=== PATIENT | female | born 1975 | race Caucasian/White ===

== ENCOUNTER 2023-02-06 21:28 | Emergency (ER) | payer MEDICAID, SELFPAY ==
[2023-02-06 21:39] VITALS: BP 197/112; PULSE 62; RESP 14; TEMP 36.6; O2SAT 94; BMI 45.3
[2023-02-06 22:02] VITALS: BP 174/116; PULSE 60; RESP 16; O2SAT 96
--- NOTE | 2023-02-06 22:18 | W.ED.GENADLT ---
HPI - General Adult General: Chief complaint: Ear Stated complaint: Ear Ache\SOB Time Seen by Provider: 02/06/23 21:57 Source: patient Mode of arrival: ambulatory Limitations: no limitations History of Present Illness: Patient is a 47-year-old female presents to ED today with a complaint of cough and shortness of breath that he attributes to her COPD as well as right ear pain. Patient states she has chronic COPD and which she treats with albuterol nebulizer treatments. Patient states she does have some leftover prednisone that she has been taking as well. Patient continues to smoke daily. She is not complaining of any chest pain. She states she chronically has ear infections. Looking at previous documentation it looks like she was recently seen in [facility] clinic and diagnosed with bilateral otitis media. Onset (ago): day(s) Relieving factors: none Exacerbating factors: none Associated symptoms: Reports dyspnea; Deny chest pain, confusion, headache(s), malaise, rash, palpitations or syncope Review of Systems Const: Denies: fever(s), chills, body aches, fatigue or malaise ENMT: Reports: ear or mastoid pain; Denies: ear discharge, change in hearing, tinnitus or disequilibrium Card: Reports: dyspnea on exertion; Denies: chest pain, palpitations, irregular heart rhythm, edema, swelling of feet/ankles, lightheadedness, syncope, pre-syncope, orthopnea, leg pain with exertion or acrocyanosis Resp: Reports: dyspnea, productive cough and chest congestion; Denies: wheezing or hemoptysis GI: Denies: abdominal pain Musc: Denies: neck pain, back pain, extremity pain or joint pain Skin/Breast: Denies: rash Neuro: Denies: headache(s), numbness in extremities, weakness in extremities, sensory changes or confusion PFS ED PFSH: Medical History Vulvovaginitis due to yeast Physical Exam Const: COMMON NORMALS: no acute distress, patient oriented x3, no limitations and alert GENERAL APPEARANCE: cooperative NUTRITIONAL APPEARANCE: obese morbidly obese ORIENTATION/CONSCIOUSNESS: Yes awake, Yes oriented to person, Yes oriented to place and Yes oriented to time HENMT: COMMON NORMALS: normocephalic, atraumatic and EAC's normal HEAD & SCALP: normal to inspection, normocephalic and atraumatic EXTERNAL AUDITORY CANAL: EAC's normal TYMPANIC MEMBRANE: TM normal on the left and TM abnormal TM laterality: right Details: fluid behind TM Neck/C-Spine: COMMON NORMALS: no JVD Chest: COMMONS NORMALS: normal inspection of the chest and normal palpation of entire chest wall Resp: COMMON NORMALS: normal respiratory effort EFFORT & INSPECTION: Yes able to speak in complete sentences AUSCULTATION: wheezes Cardio: COMMON NORMALS: no JVD, regular rate and regular rhythm RATE: regular rate RHYTHM: regular rhythm Extremity: COMMON NORMALS: no joint enlargement, no clubbing, cyanosis or edema, no calf tenderness and no pedal edema Neuro: COMMON NORMALS: patient oriented x3 SENSORIUM/ORIENTATION: Yes alert, Yes oriented to person, Yes oriented to place and Yes oriented to time Course Vital Signs: Vital signs: Vital Signs Temperature 97.9 F 02/06/23 22:38 Pulse Rate 60 02/06/23 22:38 Respiratory Rate 16 02/06/23 22:38 Blood Pressure 174/116 02/06/23 22:38 Pulse Oximetry 96 02/06/23 22:38 Oxygen Delivery Me thod Room Air 02/06/23 22:02 MDM - General Adult Medical Decision Making Shortly after my initial examination patient alerted the RN that she wished to sign out AMA. I went in to speak to patient and she states I know what I need to do-need to go home and lay on the couch and get better . We spoke about blood work, chest x-rays, and potential treatments for better management of her COPD but she refuses all of this and would like to go home. Discussed signs and symptoms that should prompt a return to ED evaluation which patient agrees to. She does not a primary care provider so I will place a referral with case management for one. Discharge Plan Discharge Patient Disposition: Left Against Medical Advice Clinical Impression: COPD (chronic obstructive pulmonary disease), Acute serous otitis media of right ear Condition: Stable Prescriptions: No Action lisinopril 40 mg tablet 40 mg PO DAILY omeprazole 10 mg capsule,delayed release(DR/EC) 10 mg PO DAILY buprenorphine-naloxone 8-2 mg tablet, sublingual 1 tab sublingual DAILY albuterol sulfate 2.5 mg /3 mL (0.083 %) solution for nebulization 2.5 mg inhalation Q6H azithromycin 250 mg tablet See Rx Instructions PO .COMPLEX Qty: 6 0RF Rx Instructions: take 500 mg today (day 1), then 250 mg for 4 days (days 2-5) PO fluconazole [Diflucan] 150 mg tablet 150 mg PO Q3D Qty: 2 0RF Coding Level of Care Code ED Filling And Stapling Machine Operator for Tracy Peralta
--- NOTE | 2023-02-06 22:29 | PC.NURSE ---
RN goes into room to answer call light. X-ray tech is arriving in the room to perform chest x-ray. Pt states, I think I just want to leave. We both know what's wrong with me. I don't really need that x-ray. RN notified provider. X-ray was not taken.
[2023-02-06 22:38] VITALS: BP 174/116; PULSE 60; RESP 16; TEMP 36.6; O2SAT 96
== END 2023-02-06 22:39 | disposition left against medical advice (07) ==
PROVIDERS: Emergency Provider Physician Assistant
DX: J44.9 Chronic obstructive pulmonary disease, unspecified (principal); H65.01 Acute serous otitis media, right ear
CPT/HCPCS: 99281

== ENCOUNTER 2023-04-15 22:46 | Emergency (ER) | payer MEDICAID, SELFPAY ==
[2023-04-15 22:55] VITALS: BP 161/108; PULSE 84; RESP 18; TEMP 36.9; O2SAT 95; BMI 47.2
--- NOTE | 2023-04-16 02:21 | W.ED.EAR ---
HPI - Ear Problem General: Chief complaint: Ear Stated complaint: possible ear infection Time Seen by Provider: 04/15/23 23:28 Source: patient Mode of arrival: ambulatory Limitations: no limitations History of Present Illness: Patient presents emergency department today complaining of bilateral ear pain-right worse than left. Patient reports she has been dealing with bilateral ear pressure now for over a month. She has already been seen and evaluated and was treated with some eardrops and nasal spray which seemed to help for a bit. However, recently the pain has gotten worse. She does have some nasal congestion and throat irritation. Patient reports a long history of issues with her ears stating that a year or 2 ago she had ear tubes placed by ENT in [place] no she is not sure who did it. She states her primary care doctor said they were going to place a referral to ENT but that was over a month ago and she has not heard anything about it yet. Review of Systems General: Reports: 10 or more systems reviewed and unremarkable except in HPI and below PFSH ED PFSH: Medical History Acute serous otitis media of right ear COPD (chronic obstructive pulmonary disease) Smoker Smokers' cough Vulvovaginitis due to yeast Physical Exam Const: COMMON NORMALS: no acute distress, patient oriented x3 and alert HENMT: OTHER: Left TM is nonerythematous but bulging with fluid present. EAC is clear. Right TM is erythematous and bulging with purulent accumulation noted. EAC clear. Pharynx is mildly erythematous but without exudate. Nasal passages are erythematous and boggy bilaterally. Eye: COMMON NORMALS: Equal, round and reactive pupils present, EOMs intact bilaterally and conjunctivae normal CONJUNCTIVA: Yes conjunctivae normal PUPIL: Yes Equal, round and reactive pupils present Neck/C-Spine: COMMON NORMALS: no JVD Lymph: LYMPHATIC: no lymphadenopathy noted Resp: COMMON NORMALS: normal respiratory effort, No retractions and No use of accessory muscles Cardio: COMMON NORMALS: no JVD and regular rate RATE: regular rate : COMMON NORMALS: Yes no CVA tenderness BLADDER/KIDNEY EXAM: Yes no CVA tenderness Back/Pelvis: COMMON NORMALS: no CVA tenderness, thoracic and lumbar spine normal to inspection and thoraco-lumbar ROM normal Extremity: COMMON NORMALS: normal to inspection, full ROM and no pedal edema Neuro: COMMON NORMALS: patient oriented x3 SENSORIUM/ORIENTATION: Yes alert Skin: COMMON NORMALS: no rashes or lesions noted and turgor normal GENERAL SKIN EXAM: no rashes or lesions noted and turgor normal Course Vital Signs: Vital signs: Vital Signs Temperature 98.4 F 04/15/23 22:55 Pulse Rate 84 04/15/23 22:55 Respiratory Rate 18 04/15/23 22:55 Blood Pressure 161/108 04/15/23 22:55 Pulse Oximetry 95 04/15/23 22:55 Oxygen Delivery Me thod Room Air 04/15/23 22:55 MDM - Ear Medical Decision Making Patient has findings of right-sided otitis media and a serous otitis media on the left. Explained to the patient that she has developed an infection from the accumulation of fluid behind her ears. Patient states that she used to see [facility] in [place] and, when she would get ear infections would receive a Z-Gopal which always cleared her up. She is concerned about possible reaction to other antibiotics and wishes to stick with a Z-Gopal for treatment today. I encouraged her to keep using the nasal spray and antihistamines. I also placed another referral for ENT follow-up on her behalf today. Patient was given return precautions. Patient verbalized understanding and agreement to treatment plan. Differential Diagnosis Likely otitis externa and otitis media; Unlikely foreign body in ear, ruptured TM or cerumen impaction Discharge Plan Discharge Patient Disposition: Home Clinical Impression: Otitis media Condition: Stable Prescriptions: New Zithromax Z-Gopal 250 mg tablet See Rx Instructions PO .COMPLEX Qty: 6 0RF Rx Instructions: For 250 mg dose pack: take 500 mg today (day 1), then 250 mg for 4 days (days 2-5) No Action lisinopril 40 mg tablet 40 mg PO DAILY omeprazole 10 mg capsule,delayed release(DR/EC) 10 mg PO DAILY buprenorphine-naloxone 8-2 mg tablet, sublingual 1 tab sublingual DAILY albuterol sulfate 2.5 mg /3 mL (0.083 %) solution for nebulization 2.5 mg inhalation Q6H cetirizine 10 mg tablet 10 mg PO DAILY PRN (Reason: allergy symptoms) Qty: 90 0RF Discharge Orders: Discharge ED (Routine); Ordered 04/16/23 Ordered By: Louise Garcia Referrals: VALENTINA HERNANDEZ MD [Primary Care Provider] - Discharge Diet: Usual diet Discharge Activity: Increase activity as tolerated Activity Restrictions/Additional Instructions: Examination shows that the fluid behind your right eardrum has now become infected and you have developed otitis media. You need antibiotics to treat this condition. I think your underlying issue is recurrent eustachian tube dysfunction where the draining tube for the fluid behind your ear is often pinched shut and does not allow for the fluid to drain and remains trapped. This causes increased pressure, decreased ability to hear, and increases your risk of infection. I have placed a referral for ENT follow-up on your behalf to discuss recurrent issues with increased fluid on your ears. Coding Level of Care Code ED Remotely Piloted Vehicle Controller for Tracy Peralta
--- NOTE | 2023-04-18 12:33 | DCPLANNER ---
Addendum entered by Isabell Galeana 04/19/23 13:44: Patient has a follow up appointment scheduled for Thursday, April 27, 2023 at 2:[address] Coffey at ENT Original Note: seed corn manager production had message to schedule a follow up appointment for patient for ENT. seed corn manager production sent patients information to the front office staff at ENT. Patients information will be printed and reviewed. Clinic will call patient with appointment information.
== END 2023-04-16 00:16 | disposition home or self-care (01) ==
PROVIDERS: Emergency Provider Physician Assistant; PCP Nurse Practitioner Family
DX: H65.92 Unspecified nonsuppurative otitis media, left ear (principal); H66.91 Otitis media, unspecified, right ear
CPT/HCPCS: 99283

== ENCOUNTER → 2023-04-27 13:29 | Outpatient (BNVA) | payer MEDICAID, SELFPAY | PROVIDERS: PCP Nurse Practitioner Family; Visit Provider Otolaryngology | DX: H69.93 Unspecified Eustachian tube disorder, bilateral (principal); J34.2 Deviated nasal septum; M95.0 Acquired deformity of nose; F17.200 Nicotine dependence, unspecified, uncomplicated; E66.01 Morbid (severe) obesity due to excess calories; Z68.42 Body mass index [BMI] 45.0-49.9, adult | CPT/HCPCS: 99203 ==

== ENCOUNTER 2023-05-07 18:56 | Emergency (ER) | payer MEDICAID, SELFPAY ==
[2023-05-07 19:05] VITALS: BP 116/80; PULSE 100; RESP 18; TEMP 36.8; O2SAT 97; BMI 47.3
--- NOTE | 2023-05-07 19:33 | ED_ITS ---
HPI - General Adult General: Chief complaint: General Medical Stated complaint: Knot on side Of Throat Time Seen by Provider: 05/07/23 19:32 History of Present Illness: 47-year-old female comes in today with complaints of ear pain and sore lymph nodes to the anterior cervical chain increased on the right than the left. Patient appears nontoxic. Patient appears in mild pain. Patient has been treated by ENT, Dr. Coffey, for eustachian tube dysfunction. Patient was seen yesterday at urgent care clinic and was instructed to use [id number] allergy medication and Flonase. Patient has been using the medication with some relief of discomfort. Patient reports no fever. Patient takes medications for GERD, and high blood pressure, and substance use disorder. Associated symptoms: Deny chest pain or dyspnea Review of Systems Const: Denies: fever(s) ENMT: Reports: ear or mastoid pain Card: Denies: chest pain Resp: Denies: dyspnea PFSH ED PFSH: Medical History COPD (chronic obstructive pulmonary disease) Smoker Smokers' cough Physical Exam Const: COMMON NORMALS: alert HENMT: HEAD & SCALP: normal to inspection TYMPANIC MEMBRANE: TM abnormal TM laterality: right Details: dull and left Details: retracted MOUTH: Normal oral and palatal mucosa present Neck/C-Spine: COMMON NORMALS: full ROM Lymph: LYMPHATIC: lymphadenopathy (Anterior cervical bilaterally) Resp: COMMON NORMALS: normal respiratory effort Cardio: COMMON NORMALS: regular rate and regular rhythm RATE: regular rate RHYTHM: regular rhythm GI: COMMON NORMALS: Soft to palpation PALPATION: Yes Soft to palpation Back/Pelvis: COMMON NORMALS: thoracic and lumbar spine normal to inspection Extremity: COMMON NORMALS: full ROM Neuro: SENSORIUM/ORIENTATION: Yes alert Skin: COMMON NORMALS: turgor normal GENERAL SKIN EXAM: turgor normal Course Vital Signs: Vital signs: Vital Signs Temperature 98.3 F 05/07/23 19:05 Pulse Rate 100 05/07/23 19:05 Respiratory Rate 18 05/07/23 19:05 Blood Pressure 116/80 05/07/23 19:05 Pulse Oximetry 97 05/07/23 19:05 Oxygen Delivery Me thod Room Air 05/07/23 19:05 MDM - General Adult Medical Decision Making 47-year-old female comes in today with complaints of ear pain and tender lymph nodes to her anterior cervical neck. On exam patient appears nontoxic. Right tympanic membrane is dull and bulging, left TM is retracted. No significant erythema is noted. Patient has some mild lymphadenopathy noted bilaterally vital signs are normal. Differential diagnosis includes but not limited to otalgia, eustachian tube dysfunction, otitis media, upper respiratory infection. Strep test was negative. Urinalysis did have an increased amount of white blood cells. Believe patient probably has a rhinosinusitis causing her otalgia. Patient did have some increased discharge in the vaginal area we will go ahead and treat with Diflucan and cover with antibiotic azithromycin for her rhinosinusitis. Patient was also started on some prednisone to assist with throat discomfort and ear pain. Encourage fluids rest and repeat Diflucan at the end of the antibiotic and steroid use. Patient reported understanding and agreed to plan. Lab Data Laboratory Results Urine Color Yellow (Yellow) 05/07/23 19:37 Urine Appearance Clear (CLEAR) 05/07/23 19:37 Urine pH 5 (5-7) 05/07/23 19:37 Ur Specific Armstrong 1.015 (1.005-1.030) 05/07/23 19:37 Urine Protein Neg (Negative) 05/07/23 19:37 Urine Glucose (UA) Norm (Normal) 05/07/23 19:37 Urine Ketones Negative (Negative) 05/07/23 19:37 Urine Blood Neg (Negative) 05/07/23 19:37 Urine Nitrate Negative (Negative) 05/07/23 19:37 Urine Bilirubin 1+ (Negative) H 05/07/23 19:37 Urine Urobilinogen 1 mg/dL (Negative) H 05/07/23 19:37 Ur Leukocyte Esterase Trace (Negative) H 05/07/23 19:37 Urine RBC Rare /hpf (0-2) 05/07/23 19:37 Urine WBC 0-4 /hpf (0-5) H 05/07/23 19:37 Ur Squamous Epith Cells 0-4 /hpf (0-5) H 05/07/23 19:37 Amorphous Sediment Not Reportable 05/07/23 19:37 Urine Bacteria 1+ /hpf (NONE) H 05/07/23 19:37 Urine Mucus 2+ /hpf 05/07/23 19:37 Group A Strep Rapid Negative (Negative) 05/07/23 19:48 No radiology studies performed this visit Discharge Plan Discharge Patient Disposition: Home Clinical Impression: Otalgia of both ears, Acute rhinosinusitis Condition: Stable Prescriptions: New azithromycin 250 mg tablet 250 mg PO DAILY 4 Days Qty: 4 0RF Rx Instructions: start on day 2 of therapy prednisone 20 mg tablet 20 mg PO BID Qty: 7 0RF Diflucan 150 mg tablet 150 mg PO DAILY Qty: 1 0RF Rx Instructions: administer on day 1 of therapy after antibiotic completion No Action lisinopril 40 mg tablet 40 mg PO DAILY omeprazole 10 mg capsule,delayed release(DR/EC) 10 mg PO DAILY buprenorphine-naloxone 8-2 mg tablet, sublingual 1 tab sublingual DAILY albuterol sulfate 2.5 mg /3 mL (0.083 %) solution for nebulization 2.5 mg inhalation Q6H cetirizine 10 mg tablet 10 mg PO DAILY PRN (Reason: allergy symptoms) Qty: 90 0RF Discharge Orders: Discharge ED (Routine); Ordered 05/07/23 Ordered By: Rodolfo Cardenas Referrals: VALENTINA HERNANDEZ MD [Primary Care Provider] - Discharge Diet: Usual diet Discharge Activity: Increase activity as tolerated Patient Instructions: Earache (ED) Activity Restrictions/Additional Instructions: Drink plenty of water and fluids of medications. Use acetaminophen and ibuprofen for pain. Use ice or heat packs for further pain relief. Follow-up with Dr. Coffey's office on Tuesday. Return to ER for increased shortness of breath, severe chest pain, or inability to swallow fluids. Coding Level of Care Code ED Pre Press Proofer for Tracy Peralta
[2023-05-07 20:01] LABS: Rapid Strep A Test Negative (Negative)
[2023-05-07 20:03] LABS: Add Urine Microscopic? YES; Bilirubin Urine 1+ (Negative); Blood Urine Neg (Negative); Glucose Urine UA Norm (Normal); Ketones Urine Negative (Negative); Leukocyte Esterase Urine Trace (Negative); Nitrate Urine Negative (Negative); Protein Urine Neg (Negative); RBC Urine RARE /hpf (0-2); Specific Gravity, Urine 1.015 (1.005-1.030); Urine Appearance Clear (CLEAR); Urine Color Yellow (Yellow); Urobilinogen Urine 1 mg/dL (Negative); pH Urine 5 (5-7)
[2023-05-07 20:04] LABS: Add Urine Culture? No; Bacteria Urine 1+ /hpf; Mucus Urine 2+ /hpf; Squamous Epithelial Cell Urine 0-4 /hpf (0-5); WBC Urine 0-4 /hpf (0-5)
[2023-05-07] MEDS: azithromycin 250 mg Tablet 500 MG PO (20:12)
[2023-05-07] MEDS: fluconazole 100 mg Tablet 150 MG PO (20:12)
[2023-05-07] MEDS: ketorolac 30 mg/mL INJ IM (20:13)
== END 2023-05-07 20:28 | disposition home or self-care (01) ==
PROVIDERS: Emergency Provider Nurse Practitioner Family; PCP Nurse Practitioner Family
DX: H92.03 Otalgia, bilateral (principal); J01.90 Acute sinusitis, unspecified; J44.9 Chronic obstructive pulmonary disease, unspecified
CPT/HCPCS: 81001; 87081; 87880; 96372; 99284; J1885; Q0144

== ENCOUNTER → 2023-05-16 13:48 | Outpatient (BNVA) | payer MEDICAID, SELFPAY | PROVIDERS: PCP Nurse Practitioner Family; Visit Provider Otolaryngology | DX: H69.93 Unspecified Eustachian tube disorder, bilateral (principal) | CPT/HCPCS: 99213 ==

== ENCOUNTER → 2023-05-30 13:48 | Outpatient (BNVA) | payer MEDICAID, SELFPAY | PROVIDERS: PCP Nurse Practitioner Family; Visit Provider Otolaryngology | DX: H69.93 Unspecified Eustachian tube disorder, bilateral (principal) | CPT/HCPCS: 69433; 99212 ==

== ENCOUNTER → 2023-06-04 13:21 | Outpatient (BNVA) | payer MEDICAID, SELFPAY | PROVIDERS: PCP Nurse Practitioner Family; Visit Provider Registered Nurse Neonatal Intensive Care | DX: R09.89 Other specified symptoms and signs involving the circulatory and respiratory systems (principal); R30.0 Dysuria; R39.9 Unspecified symptoms and signs involving the genitourinary system | CPT/HCPCS: 81000; 87086; 87400 ==

== ENCOUNTER → 2023-08-07 12:14 | Outpatient (BNVA) | payer MEDICAID, SELFPAY | PROVIDERS: PCP Nurse Practitioner Family; Visit Provider Nurse Practitioner | DX: M54.9 Dorsalgia, unspecified (principal); M54.50 Low back pain, unspecified; J01.40 Acute pansinusitis, unspecified | CPT/HCPCS: 81000 ==

== ENCOUNTER → 2023-08-11 14:33 | Outpatient (BNVA) | payer MEDICAID, SELFPAY | PROVIDERS: PCP Nurse Practitioner Family; Visit Provider Nurse Practitioner Family | DX: J30.2 Other seasonal allergic rhinitis (principal); J06.9 Acute upper respiratory infection, unspecified; J32.0 Chronic maxillary sinusitis; J01.00 Acute maxillary sinusitis, unspecified | CPT/HCPCS: 87486; 87581; 87633 ==

== ENCOUNTER → 2023-12-01 17:01 | Outpatient (BNVA) | payer MEDICAID, SELFPAY | PROVIDERS: PCP Nurse Practitioner Family; Visit Provider Nurse Practitioner Family | DX: Z86.19 Personal history of other infectious and parasitic diseases (principal); F19.11 Other psychoactive substance abuse, in remission; E66.01 Morbid (severe) obesity due to excess calories; Z68.42 Body mass index [BMI] 45.0-49.9, adult; F41.9 Anxiety disorder, unspecified; F32.A Depression, unspecified; M54.9 Dorsalgia, unspecified; G89.29 Other chronic pain; B37.31 Acute candidiasis of vulva and vagina; K21.9 Gastro-esophageal reflux disease without esophagitis | CPT/HCPCS: 80053; 80061; 83036; 84443; 85025; 86705; 86706; 86709; 86803; 87340; 87902 ==

== ENCOUNTER → 2023-12-02 17:55 | Outpatient (BNVA) | payer MEDICAID, SELFPAY | PROVIDERS: PCP Nurse Practitioner Family; Visit Provider Nurse Practitioner Family | DX: Z86.19 Personal history of other infectious and parasitic diseases (principal); F19.11 Other psychoactive substance abuse, in remission; E66.01 Morbid (severe) obesity due to excess calories; Z68.42 Body mass index [BMI] 45.0-49.9, adult; F41.9 Anxiety disorder, unspecified; F32.A Depression, unspecified; M54.9 Dorsalgia, unspecified; G89.29 Other chronic pain; B37.31 Acute candidiasis of vulva and vagina; K21.9 Gastro-esophageal reflux disease without esophagitis | CPT/HCPCS: 87522 ==

== ENCOUNTER → 2024-03-12 15:31 | Outpatient (BNVA) | payer MEDICAID, SELFPAY | PROVIDERS: PCP Nurse Practitioner Family; Visit Provider Nurse Practitioner Family | DX: F41.9 Anxiety disorder, unspecified (principal); F32.A Depression, unspecified; E66.01 Morbid (severe) obesity due to excess calories; Z68.42 Body mass index [BMI] 45.0-49.9, adult; K21.9 Gastro-esophageal reflux disease without esophagitis; J44.9 Chronic obstructive pulmonary disease, unspecified | CPT/HCPCS: 80053; 83036; 84443; 85025 ==

== ENCOUNTER → 2024-09-04 15:56 | Outpatient (BNVA) | payer MEDICAID, SELFPAY | PROVIDERS: PCP Nurse Practitioner Family; Visit Provider Nurse Practitioner Family | DX: R10.2 Pelvic and perineal pain | CPT/HCPCS: 81000; 81513; 87481; 87491; 87591; 87624; 87661 ==

== ENCOUNTER → 2024-11-20 15:15 | Outpatient (BNVA) | payer MEDICAID, SELFPAY | PROVIDERS: PCP Nurse Practitioner Family; Visit Provider Nurse Practitioner Women's Health | DX: Z01.419 Encounter for gynecological examination (general) (routine) without abnormal findings (principal); B37.31 Acute candidiasis of vulva and vagina; S30.810A Abrasion of lower back and pelvis, initial encounter; R23.2 Flushing | CPT/HCPCS: 80053; 82670; 83001; 83002; 83036; 84443; 85025 ==

== ENCOUNTER 2025-04-04 20:46 | Emergency (ER) | payer MEDICAID, SELFPAY ==
--- OUTSIDE RECORDS SUMMARY | 2003-08-21 19:00 | XMS_ITS | Continuity of Care Document ---
Author Name [facility] Address [address] [place] [address] Organization [facility] Care Team Providers Care Price Accuracy Supervisor Name Role Phone [facility] Unavailable Unavailable Allergies, Adverse Reactions, Alerts Substance Category Reaction Severity Reaction type Status Date Reported Comments Source traMADol Assertion Drug allergy Active [facility] [place]
--- OUTSIDE RECORDS SUMMARY | 2024-06-16 04:00 | XMS_ITS ---
Author Organization [facility] Address [address] [place] [address] Care Team Providers Care Quality Technician Fiberglass Name Role Phone George Skinner Primary Care Provider [phone] Migration, Provider Unavailable Unavailable REASON FOR VISIT EMR-Aldo Encounters Encounter Location Date Provider Diagnosis Migrated_Facility 0 0 06/16/2024 Provider Migration Plan Of Treatment No Information Progress Notes * EVAN BESTOB:1975 ([age] yo F)Acc No.[id number]:06/16/2024 Patient: REINALDO LYNCH :1975 A ge:48 Y S ex:Female Address:[address], [address], [place], [address] Subjective: * Chief Complaints: * E MR-Aldo * * Date:
--- OUTSIDE RECORDS SUMMARY | 2024-06-17 04:00 | XMS_ITS ---
Author Organization [facility] Address [address] [place] [address] Care Team Providers Care Horseshoer Name Role Phone George Skinner Primary Care Provider [phone] Migration, Provider Unavailable Unavailable Allergies Allergen (clinical drug ingredient) Drug/Non Drug Allergy documented on EMR Reaction Allergy Type Onset Date Status Penicillin Unknown Drug Allergy Active REASON FOR VISIT EMR-Aldo Encounters Encounter Location Date Provider Diagnosis Migrated_Facility 0 0 06/17/2024 Provider Migration Plan Of Treatment No Information Progress Notes * EVAN BESTOB:1975 ([age] yo F)Acc No.[id number]:06/17/2024 Patient: REINALDO LYNCH :1975 A ge:48 Y S ex:Female Address:[address], [address], [place], [address] Subjective: * Chief Complaints: * E MR-Aldo * Allergies: P enicillin: Allergy * * Date:"
--- OUTSIDE RECORDS SUMMARY | 2024-08-02 10:20 | XMS_ITS ---
Author Organization [facility] Address [address] [place] [address] Care Team Providers Care Election Supervisor Name Role Phone George Skinner Primary Care Provider REASON FOR VISIT 4 MONTH F/U Social [...] smoke? 21-30 Section Notes: Tob: 06/04/24 Dep: 06/04/24 Encounters Encounter Location Date Provider Diagnosis [facility] [address] [facility] [address] [place] [address] 08/02/2024 George Skinner Plan Of Treatment No Information Progress Notes * EVAN BESTOB:1975 ([age] yo F)Acc No.[id number]:08/02/2024 Progress Notes Patient: REINALDO LYNCH Provider: Rodolfo Skinner MD :1975 A ge:48 Y S ex:Female Date:08/02/2024 Address:[facility] [address], [place], [id number] Subjective: * Chief Complaints: * 4 MONTH [...] Electronic signature of Moris Skinner MD on 04/04/2025 at 08:54 PM CDT Sign off status: Pending * Provider: Rodolfo Skinner MD Date: 10/03/2023 Generated for Lynn dobbins/Aaron/Dai on: 04/04/2025 08:54 PM CDT
--- OUTSIDE RECORDS SUMMARY | 2025-04-04 20:54 | XMS_ITS | Patient Health Record ---
Author Organization [facility] Address [address] [place] [address] Care Team Providers Care Service Representative Name Role Phone George Skinner Primary Care Provider Vaishali Galvez Unavailable [phone] Migration, Provider Unavailable Unavailable Allergies Allergen (clinical drug ingredient) Drug/Non Drug Allergy documented on EMR Reaction Allergy Type Onset Date Status Penicillin Unknown Drug Allergy Active Results Component Value Reference Range Notes US Abdomen Limited-31385 Reviewed date:07/04/2024 01:14:51 PM Interpretation: Performing Lab: Notes/Report: See Below For Report US Abdomen Limited Read See Below For Report US Abdomen Limited-[id number] Reviewed date:07/02/2024 05:10:50 PM Interpretation: Performing Lab: Notes/Report: [id number] Reason For Referral Reason First available ENT in . 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) Referral Organization [facility] Referring Provider First Name Thomas gonzalez Referring Provider Last Name Susanne Referring Provider Speciality Internal M edicine Referred Provider [facility] Antonette schmidt [place] Referred Provider Specialty Ear, nose an d throat surgeon General Notes Magda Reddy 02:28:19 PM >Faxed [facility] 06/11/2024 02:27:28 PM >PER FAX May @ 2:20, Anaya Chan 08/29/2024 10:57:13 AM >PER [facility] PT NO SHOWED APPT Referral Priority Routine Referral Appointment Date 06/19/2024 Medications Medication SIG (Take, Route, Frequency, Duration) Notes Start Date End Date Status Ondansetron 4 MG Tablet Disintegrating 1 tablet on the tongue and allow to dissolve Orally Once a day; Duration: 20 days 02/09/2024 Active NexIUM 40 MG Capsule Delayed Release 1 capsule Orally Once a day Active Lisinopril 40 MG Tablet 1 tablet Orally Once a day Active Buprenorphine HCl 8 MG Tablet Sublingual 1 tablet under the tongue and allow to dissolve Sublingual 3 times a day Active Albuterol Sulfate (2.5 MG/3ML) 0.083% Nebulization Solution 3 mL as needed Inhalation every 6 hrs Active Albuterol Sulfate HFA 108 (90 Base) MCG/ACT Aerosol Solution 1 puff as needed Inhalation every 4 hrs Active Ofloxacin 0.3 % Solution 10 drops into a ffected ear Otic Once a day Active Aspirin 81 MG Tablet Delayed Release 1 tablet Orally Once a day Active Ventolin HFA 108 (90 Base) MCG/ACT Aerosol Solution 1 puff as needed Inhalation every 4 hrs Active Suboxone 8-2 MG Film 1 film under the tongue and allow to dissolve Sublingual Once a day Not-Taking Social History Tobacco Use: Social History Observation [...] Risk) Total Score 10 Interpretation Moderate Depression Drugs/Alcohol: Social Info Question Answer Notes Drugs Have you used drugs other than those for medical reasons in the past 12 months? No Drug/Alcohol: Social Info Question Answer Notes AUDIT-C (Standard) Did you have a drink containing alcohol in the past year? No Points 0 Interpretation Negative Tobacco Use: Social Info Question Answer Notes Tobacco Control (Standard) Tobacco use: Current smoker How often do you smoke cigarettes? Every day How many cigarettes a day do you smoke? 21-30 Section Notes: Tob: 06/04/24 Dep: 06/04/24 06/04/24 Problems Problem Type SNOMED Code ICD Code Onset Dates Problem Status W/U Status Risk Notes Problem Chronic pain (60702085) Other chronic pain (G89.29) Active confirmed Problem Epigastric pain (57174732) Epigastric pain (R10.13) Active confirmed Problem Abdominal pain (41988785) Unspecified abdominal pain (R10.9) Active confirmed Problem Chronic hepatitis C (234193051) Hep C w/o coma, chronic (B18.2) Active confirmed Problem Edema of lower extremity (732722964) Leg edema (R60.0) Active confirmed Problem History of gallstones (554023482) History of gallstones (Z87.19) Active confirmed Problem Perforation of tympanic membrane (16298294) 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) Active confirmed Problem Viral hepatitis type C (73109196) Hepatitis C test positive (B19.20) Active confirmed Problem Candidiasis of vagina (disorder) (44954925) Vaginal yeast infection (B37.31) Active confirmed Vital Signs Heart Rate 98 /min 06/04/2024 Temperature 98.5 degrees Fahrenheit 06/04/2024 Blood pressure diastolic 78 mm Hg 06/04/2024 Oximetry 95 % 06/04/2024 Height-cm 165.1 cm 06/04/2024 Weight-kg 152.5 kg 06/04/2024 Height 65 in 06/04/2024 Blood pressure systolic 140 mm Hg 06/04/2024 Weight 336.2 lbs 06/04/2024 BMI 55.94 kg/m2 06/04/2024 Encounters Encounter Location Date Provider Diagnosis [facility] [address] [place] [address] 06/04/2024 George Skinner Perforation of both tympanic membranes H72.93 ; History of gallstones Z87.19 and Depression screening Z13.31 Migrated_Facility 0 0 06/16/2024 Provider Migration [facility]Facility 0 0 06/17/2024 Provider Migration [address] [place] [address] 10/22/2024 Vaishali Galvez Assessments Encounter Date Diagnosis (ICD Code) Assessment Notes Treatment Notes Treatment Clinical Notes Section Notes 06/04/2024 Perforation of both tympanic membranes (ICD-10 - H72.93) 06/04/2024 History of gallstones (ICD-10 - Z87.19) 06/04/2024 Depression screening (ICD-10 - Z13.31) Plan Of Treatment No Information Insurance Providers Payer Name Payer Address Payer Phone Subscriber Number Group Number Insured Name Patient Relationship to Insured Coverage Start Date Coverage End Date [place] Medicaid [address] [place] [address] [id number] REINALDO BEST Self - patient is the insured Medical (General) History Medical History History ICD Code stomach cancer High Blood Pressure anxiety Surgical History Surgery Date(Month/Year) appendectomy 2003 stomach cancer x 7 2004 partial hysterectomy
[2025-04-04 21:09] VITALS: BP 191/108; PULSE 96; RESP 18; TEMP 36.8; O2SAT 95; BMI 51.6
--- NOTE | 2025-04-04 21:16 | XRR_ITS ---
PROCEDURE INFORMATION: Exam: XR Right Toe(s) Exam date and time: 04/04/2025 9:53 PM Age: 49 years old Clinical indication: Pain; Toes; Right; Additional info: Trauma/pain TECHNIQUE: Imaging protocol: Radiologic exam of the right toes. Views: Minimum 2 views. COMPARISON: No relevant prior studies available. FINDINGS: Bones/joints: Normal. No acute displaced fracture or dislocation. Soft tissues: Soft tissue edema. XR/XR toe RT min 2V 50196 IMPRESSION: No acute findings.
[2025-04-04 22:01] LABS: Hematocrit 40.7 % (36-47); Hemoglobin 13.00 g/dL (11.27-16.99); Mean Corpuscular HGB Conc 31.9 g/dL (30-55); Mean Corpuscular Hemoglobin 28.7 pg (27-33); Mean Corpuscular Volume 89.8 fl (85-98); Nucleated Red Blood Cells % 0 %; Platelet Count 174 10^3/cmm (157-399); Red Blood Count 4.53 10^6/uL (3.85-5.65); White Blood Count 8.72 10^3/uL (3.29-11.43)
[2025-04-04 22:20] LABS: Alanine Aminotransferase 23 U/L (0-33); Albumin Level 3.8 g/dL (3.5-5.2); Alkaline Phosphatase 106 U/L (35-105); Anion Gap 13.9 (5-19); Aspartate Amino Transferase 23 U/L (0-32); Blood Urea Nitrogen 10 mg/dL (6-20); Calcium 8.9 mg/dL (8.5-10.5); Carbon Dioxide 27 mmol/L (22-29); Chloride 103 mmol/L (98-107); Creatinine Clr Calc Pharmacy 219.4867; Globulin 3.5 g/dL (1.3-4.6); Glucose 133 mg/dL (65-115); Osmolality Calculated 291 mOsm/kg (285-295); Potassium 3.9 mmol/L (3.5-5.1); Sodium 140 mmol/L (136-145); Total Protein 7.3 g/dL (6.6-8.7)
== END 2025-04-05 00:06 | disposition left against medical advice (07) ==
PROVIDERS: Student in an Organized Health Care Education/Training Program; Emergency Provider Family Medicine; PCP Nurse Practitioner Family
DX: M79.674 Pain in right toe(s) (principal); R60.0 Localized edema; Z53.21 Procedure and treatment not carried out due to patient leaving prior to being seen by health care provider
CPT/HCPCS: 36415; 73660; 80053; 85025; 86140; 99284

== ENCOUNTER 2025-04-24 21:50 | Emergency (ER) | payer MEDICAID, SELFPAY ==
--- OUTSIDE RECORDS SUMMARY | 2003-08-21 19:00 | XMS_ITS | Continuity of Care Document ---
Author Name [facility] Address [address] [place] [address] Organization [facility] Care Team Providers Care Machine Assembler For Puller Over Name Role Phone [facility] Unavailable Unavailable Allergies, Adverse Reactions, Alerts Substance Category Reaction Severity Reaction type Status Date Reported Comments Source traMADol Assertion Drug allergy Active [facility] [place]
--- OUTSIDE RECORDS SUMMARY | 2024-04-30 11:20 | XMS_ITS ---
Author Organization [facility] Address [address] [place] [address] Care Team Providers Care Mortgage Consultant Name Role Phone Goerge Skinner [phone] REASON FOR VISIT NEEDS REFERRAL Encounters Encounter Location Date Provider Diagnosis [facility] [address] [place] [id number] 04/30/2024 George Skinner Plan Of Treatment No Information Progress Notes * EVAN BESTOB:1975 ([age] yo F)Acc No.[id number]:04/30/2024 Patient: REINALDO LYNCH Provider: Rodolfo Skinner MD :1975 A ge:48 Y S ex:Female Date:04/30/2024 Address:[address], [address], [place], [id number] Subjective: * Chief Complaints: * N EEDS REFERRAL * Electronic signature of Moris Skinner MD on 04/24/2025 at 09:57 PM CDT Sign off status: Pending * Provider: Rodolfo Skinner MD Date: 04/30/2024 Generated for Lynn dobbins/Aaron/Avelsmitting on: 04/24/2025 09:57 PM CDT
--- OUTSIDE RECORDS SUMMARY | 2024-06-16 04:00 | XMS_ITS ---
Author Organization [facility] Address [address] [place] [address] Care Team Providers Care Pretzel Twister Name Role Phone George Skinner Unavailable Migration, Provider Unavailable Unavailable REASON FOR VISIT EMR-Aldo Encounters Encounter Location Date Provider Diagnosis Migrated_Facility 0 0 06/16/2024 Provider Migration Plan Of Treatment No Information Progress Notes * EVAN BESTOB:1975 ([age] yo F)Acc No.[id number]:06/16/2024 Patient: REINALDO LYNCH :1975 A ge:48 Y S ex:Female Address:[address], [address], [place], [address] Subjective: * Chief Complaints: * E MR-Aldo * * Date:
--- OUTSIDE RECORDS SUMMARY | 2024-06-17 04:00 | XMS_ITS ---
Author Organization [facility] Address [address] [place] [address] Care Team Providers Care Drywall Hanger Name Role Phone George Skinner Unavailable Migration, Provider Unavailable Unavailable Allergies Allergen (clinical drug ingredient) Drug/Non Drug Allergy documented on EMR Reaction Allergy Type Onset Date Status Penicillin Unknown Drug Allergy Active REASON FOR VISIT EMR-Aldo Encounters Encounter Location Date Provider Diagnosis Migrated_Facility 0 0 06/17/2024 Provider Migration Plan Of Treatment No Information Progress Notes * EVAN BESTOB:1975 ([age] yo F)Acc No.[id number]:06/17/2024 Patient: REINALDO LYNCH :1975 A ge:48 Y S ex:Female Address:[address], [address], [place], [address] Subjective: * Chief Complaints: * E MR-Aldo * Allergies: P enicillin: Allergy * * Date:
--- OUTSIDE RECORDS SUMMARY | 2024-08-02 10:20 | XMS_ITS ---
Author Organization [facility] Address [address] [place] [address] Care Team Providers Care Supervisor Twisting Department Name Role Phone George Skinner Unavailable REASON FOR VISIT 4 MONTH F/U Social History Tobacco Use: Social History Observation Description Date Details (start date - stop date) Current Smoker NA - NA Social History Depression Screening Social Info Question Answer Notes depression screening findings Findings Positive (9+ without suicidality) Completed 06/04/24 PHQ-9 Little interest or pleasure in doing things Several days Feeling down, depressed, or hopeless Several day s Trouble falling or staying a sleep, or sleeping too much Not at all Feeling tired or having little energy More than half the days Poor appetite or overeating More than half the d ays Feeling bad about yourself, or that you are a failure, or have let yourself or your family down More than half the days Trouble concentrating on thi ngs, such as reading the newspaper or watching television Not at all Moving or speaking so slowly that other people could have noticed. Or the opposite ? being so fidgety or restless that you have been moving around a lot more than usual Several days Thoughts that you would be b [place] off , or of hurting yourself in some way Several days (Consider Suicide Assessment Risk) Total Score 10 Interpretation Moderate Depression Tobacco Use: Social Info Question Answer Notes Tobacco Control (Standard) Tobacco use: Current smoker How often do you smoke cigarettes? Every day How many cigarettes a day do you smoke? 21-30 Section Notes: Tob: 06/04/24 Dep: 10/14/24 Encounters Encounter Location Date Provider Diagnosis [facility] [address] [facility] [address] [place] [address] 08/02/2024 George Skinner Plan Of Treatment No Information Progress Notes * EVAN BESTOB:1975 ([age] yo F)Acc No.[id number]:08/02/2024 Progress Notes Patient: REINALDO LYNCH Provider: Rodolfo Skinner MD :1975 A ge:48 Y S ex:Female Date:08/02/2024 Address:[facility] [address], [place], [id number] Subjective: * Chief Complaints: * 4 MONTH F/U * ROS: G eneral/Constitutional: Patient denies f atigue , fever , night sweats. ? H ematology: Patient denies e asy bruising , bleeding problems , recent transfusion. R espiratory: Patient denies c ough , shortness of breath , wheezing.? C ardiovascular: Patient denies c hest pain , irregular heartbeat , swelling in hands/feet. G astrointestinal: Patient denies a bdominal pain, bloating , constipation , diarrhea , heartburn , blood in stool , nausea , vomiting. G enitourinary: Patient denies p ainful urination , blood in the urine , difficulty urinating. E NT: Patient denies e ar pain , nosebleed, runny nose, s ore throat. M usculoskeletal: Patient denies a rthritis\arthralgia , back pain , joint stiffness , muscle aches. S kin: Patient denies s kin lesion(s) , rash , acne. ? N eurologic: Patient denies d izziness , fainting , headache , memory loss , seizures. P sychiatric: Patient denies a nxiety , depressed mood , difficulty sleeping , suicidal thoughts. * Social History: T obacco Use: T obacco Control (Standard) T obacco use: C urrent smoker H ow often do you smoke cigarettes? E very day H ow many cigarettes a day do you smoke? 2 1-30 D epression Screening: P HQ-9 L ittle interest or pleasure in doing things?Several days F eeling down, depressed, or hopeless S everal T rouble falling or staying asleep, or sleeping too much N ot at all F eeling tired or having little energy M ore than half the days P oor appetite or overeating M ore than half the days F eeling bad about yourself, or that you are a failure, or have let yourself or your family down M ore than half the days T rouble concentrating on things, such as reading the newspaper or watching television N ot at all M oving or speaking so slowly that other people could have noticed. Or the opposite ? being so fidgety or restless that you have been moving around a lot more than usual S ever T houghts that you would be better off , or of hurting yourself in some way S (Consider Suicide Assessment Risk) T otal Score 1 0 I nterpretation M oderate Depression Depression screening findings F indings P ositive (9+ without suicidality) Completed 06/04/24 T ob: 06/04/24 Dep: 06/04/24. Plan: * Preventive Medicine: Screenings: A s Listed Below * . L AST WELLNESS VISIT (if today's visit is wellness, use today's date): Date: * B REAST CANCER SCREENING: Date of most recent screening: * C ERVICAL CANCER SCREENING: Cancer screening cervical (age 21-64)?* C OLORECTAL CANCER SCREENING: Date of last colonoscopy * V ACCINATIONS: Influenza vaccinations: * F all Risk Assessment:All Patients 65+, yearly Screenings:Yearly All Diabetic Patients: ? A ll Patients: Vaccines D iabetes Screening: ? Influenza, Pneumonia, Covid, RSV? A1c ? F emales: eGFR (CMP) ? B reast Cancer Screening 41-74 Urine Albumin & Creatinine C ervical Cancer Screening 24-64 Foot Exam Females with Hx of Fx or 65+: D iabetic Eye Exam Osteoporosis Screening All 50-75 patients: ? All 65+ patients: Colorectal C ancer Screening ? L ast Wellness Visit * *Record date completed or Pt Refused * Fill in any other screenings that are known Social Hx Tobacco Control and Depression Screening once within the year Vitals Pain level If BP is 140/90 or over, recheck and document. Billing Information: * Procedure Codes: Care Plan Details* * Electronic signature of Moris Skinner MD on 04/24/2025 at 09:57 PM CDT Sign off status: Pending * Provider: Rodolfo Skinner MD Date: 1 10/03/2023 Generated for Lynn dobbins/Aaron/Dai on: 0 04/24/2025 09:57 PM CDT
--- OUTSIDE RECORDS SUMMARY | 2025-04-24 21:57 | XMS_ITS | Patient Health Record ---
Author Organization [facility] Address [address] [place] [address] Care Team Providers Care Millinery Worker Name Role Phone George Skinner Unavailable Vaishali Galvez Unavailable [phone] Migration, Provider Unavailable Unavailable Allergies Allergen (clinical drug ingredient) Drug/Non Drug Allergy documented on EMR Reaction Allergy Type Onset Date Status Penicillin Unknown Drug Allergy Active Results Component Value Reference Range Notes US Abdomen Limited-44498 Reviewed date:07/02/2024 05:10:50 PM Interpretation: Performing Lab: Notes/Report: [id number] US Abdomen Limited-64541 Reviewed date:07/04/2024 01:14:51 PM Interpretation: Performing Lab: Notes/Report: See Below For Report US Abdomen Limited Read See Below For Report Reason For Referral Reason First available ENT in . 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 -30 Section Notes: Tob: 06/04/24 Dep: 06/04/24 06/04/24 Problems Problem Type SNOMED Code ICD Code Onset Dates Problem Status W/U Status Risk Notes Problem Chronic pain (48509173) Other chronic pain (G89.29) Active confirmed Problem Epigastric pain (02781074) Epigastric pain (R10.13) Active confirmed Problem Abdominal pain (61002668) Unspecified abdominal pain (R10.9) Active confirmed Problem Chronic hepatitis C (608416022) Hep C w/o coma, chronic (B18.2) Active confirmed Problem Edema of lower extremity (074777424) Leg edema (R60.0) Active confirmed Problem History of gallstones (860370565) History of gallstones (Z87.19) Active confirmed Problem Perforation of tympanic membrane (33128105) 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) Active confirmed Problem Viral hepatitis type C (92722565) Hepatitis C test positive (B19.20) Active confirmed Problem Candidiasis of vagina (disorder) (88423122) Vaginal yeast infection (B37.31) Active confirmed Vital Signs Heart Rate 98 /min 06/04/2024 Temperature 98.5 degrees Fahrenheit 06/04/2024 Blood pressure diastolic 78 mm Hg 06/04/2024 Height-cm 165.1 cm 06/04/2024 Oximetry 95 % 06/04/2024 Weight-kg 152.5 kg 06/04/2024 Height 65 in 06/04/2024 Blood pressure systolic 140 mm Hg 06/04/2024 Weight 336.2 lbs 06/04/2024 BMI 55.94 kg/m2 06/04/2024 Encounters Encounter Location Date Provider Diagnosis [facility] [address] [place] [phone] 06/04/2024 George Skinner Perforation of both tympanic membranes H72.93 ; History of gallstones Z87.19 and Depression screening Z13.31 Migrated_Facility 0 0 06/16/2024 Provider Migration [facility]rated[facility]Facility 0 0 06/17/2024 Provider Migration [address] [place] [address] 10/22/2024 Vaishali Galvez Assessments Encounter Date Diagnosis [...] End Date [place] Medicaid [address] [place] [id number] REINALDO BEST Self - patient is the insured Medical (General) History Medical History History ICD Code stomach cancer High Blood Pressure anxiety Surgical History Surgery Date(Month/Year) appendectomy 2003 stomach cancer x 7 2004 partial hysterectomy
[2025-04-24 22:03] VITALS: BP 183/120; PULSE 90; RESP 17; TEMP 36.7; O2SAT 97; BMI 47.0
--- NOTE | 2025-04-24 22:12 | W.ED.BACK ---
HPI - Back Pain/Injury General: Chief Complaint: Back Pain/Injury Stated Complaint: Pulled rt arm, hurt back, hurts to walk Time Seen by Provider: 04/24/25 21:52 History of Present Illness: 49-year-old female presents emergency room with right-sided pain. She states she strained a muscle when she lifted her right arm up and reach out. She is painful when she moves twists or coughs or takes a deep breath. She denies any hemoptysis. She says she has a chronic baseline cough. She has not had any fever sweats or chills no direct trauma to the area Associated symptoms: Deny abdominal pain, chills, dysuria, fever(s) or urinary urgency Related Data Home Medications ?Medication ?Instructions ?Recorded ?Confirmed buprenorphine 8 mg-naloxone 2 mg 1 tab sublingual DAILY 01/30/23 04/06/25 sublingual tablet aspirin 81 mg tablet 81 mg PO DAILY PRN Pain 04/01/25 04/06/25 esomeprazole magnesium 40 mg 40 mg PO DAILY 04/01/25 04/06/25 capsule,delayed release lisinopril 40 mg tablet 40 mg PO DAILY 04/01/25 04/06/25 albuterol sulfate 2.5 mg/3 mL 2.5 mg inhalation Q6H 04/02/25 04/06/25 (0.083 %) solution for nebulization ofloxacin 0.3 % ear drops 5 drp otic (ear) DAILY 04/02/25 04/06/25 amlodipine 10 mg tablet 10 mg PO DAILY 04/06/25 04/06/25 Previous Rx's ?Medication ?Instructions ?Recorded diclofenac sodium 75 mg 75 mg PO Q12H PRN pain #20 tabs 04/25/25 tablet,delayed release tizanidine 4 mg tablet 4 mg PO Q6H PRN muscle spasticity 04/25/25 #20 tabs Allergies Allergy/AdvReac Type Severity Reaction Status Date / Time penicillin G Allergy Intermediate ALGY-Hives Verified 04/24/25 22:09 tramadol Allergy Mild ALGY-Rash Verified 04/24/25 22:09 dexamethasone (From Maxitrol Allergy rash Verified 04/24/25 22:09 (neomycin sulf)) neomycin (From Maxitrol Allergy rash Verified 04/24/25 22:09 (neomycin sulf)) polymyxin B (From Maxitrol Allergy rash Verified 04/24/25 22:09 (neomycin sulf)) Review of Systems Const: Denies: fever(s) or chills Card: Denies: chest pain Resp: Denies: dyspnea GI: Denies: abdominal pain : Denies: dysuria, urinary frequency or urinary urgency Musc: Reports: back pain; Denies: neck pain Skin/Breast: Denies: rash PFSH ED PFSH: Medical History Smokers' cough Smoker COPD (chronic obstructive pulmonary disease) Family History Father Diabetes Hypertension Sister Diabetes Hypertension Mother Hypertension Denies family history of Colon cancer Ovarian cancer Heart disease Breast cancer Uterine cancer Thyroid disease Stroke Social History Smoking and tobacco/nicotine status: current every day tobacco/nicotine user Physical Exam Const: COMMON NORMALS: no acute distress GENERAL APPEARANCE: cooperative and comfortable ORIENTATION/CONSCIOUSNESS: Yes awake, Yes oriented to person, Yes oriented to place and Yes oriented to time HENMT: COMMON NORMALS: normocephalic, atraumatic and hearing grossly normal bilaterally HEAD & SCALP: normocephalic and atraumatic Chest: OTHER: No crepitus or subcutaneous emphysema in the right lateral chest wall. Pain reproducible with palpation and movement of the right arm. Resp: COMMON NORMALS: normal respiratory effort, No retractions, No use of accessory muscles and clear to auscultation bilaterally AUSCULTATION: clear to auscultation bilaterally Cardio: COMMON NORMALS: regular rate, regular rhythm and No murmurs present (Cardio) RATE: regular rate RHYTHM: regular rhythm GI: COMMON NORMALS: Soft to palpation and No hepatosplenomegaly present AUSCULTATION: Yes normoactive bowel sounds PALPATION: Yes Soft to palpation, No Tenderness to palpation present (GI), No Guarding due to palpation present (GI) and Yes No hepatosplenomegaly present Extremity: COMMON NORMALS: normal to inspection, capillary refill normal, no clubbing, cyanosis or edema, no calf tenderness and no pedal edema Neuro: SENSORIUM/ORIENTATION: Yes oriented to person, Yes oriented to place and Yes oriented to time Skin: COMMON NORMALS: no rashes or lesions noted GENERAL SKIN EXAM: no rashes or lesions noted Course Vital Signs: Vital signs: Vital Signs Temperature 98.1 F 04/24/25 22:03 Pulse Rate 76 04/25/25 01:09 Respiratory Rate 18 04/25/25 01:05 Blood Pressure 198/114 04/25/25 01:09 Pulse Oximetry 96 04/25/25 01:09 Oxygen Delivery Me thod Room Air 04/25/25 01:09 MDM - Back Pain/Injury Medical Decision Making Exam is unremarkable pain is reproducible movement of the right arm and palpation of the lateral chest wall on the right at the level of the fifth 6 seventh ribs. Chest x-ray unremarkable urine negative. There is no subcutaneous air or crepitus in that area on exam. Will discharge patient home with anti-inflammatories muscle relaxers activity as tolerated Labs I reviewed the patient's lab results. Radiology Impressions Chest X-Ray 04/24/25 23:53 IMPRESSION: No acute cardiopulmonary process. Laboratory Results Urine Color Yellow (Yellow) 04/25/25 00:50 Urine Appearance Clear (CLEAR) 04/25/25 00:50 Urine pH 7.0 (5-7) 04/25/25 00:50 Ur Specific Kerrick 1.017 (1.005-1.030) 04/25/25 00:50 Urine Protein Negative (Negative) 04/25/25 00:50 Urine Glucose (UA) Negative (Normal) 04/25/25 00:50 Urine Ketones Negative (Negative) 04/25/25 00:50 Urine Blood Negative (Negative) 04/25/25 00:50 Urine Nitrate Negative (Negative) 04/25/25 00:50 Urine Bilirubin Negative (Negative) 04/25/25 00:50 Urine Urobilinogen 1.0 mg/dL (Negative) 04/25/25 00:50 Ur Leukocyte Esterase Negative (Negative) 04/25/25 00:50 Urine RBC 0-2 /hpf (0-2) 04/25/25 00:50 Urine WBC 0-5 /hpf (0-5) 04/25/25 00:50 Ur Squamous Epith Cells 0-5 /hpf (0-5) 04/25/25 00:50 Amorphous Sediment Not Reportable 04/25/25 00:50 Urine Bacteria None seen /hpf (NONE) 04/25/25 00:50 Hyaline Casts 0-4 /lpf H 04/25/25 00:50 All radiology interpretation(s) finalized by discharge Discharge Plan Discharge Patient Disposition: Home Clinical Impression: Thoracic back pain Condition: Stable Prescriptions: New diclofenac sodium 75 mg tablet,delayed release (DR/EC) 75 mg PO Q12H PRN (Reason: pain) Qty: 20 0RF tizanidine 4 mg tablet 4 mg PO Q6H PRN (Reason: muscle spasticity) Qty: 20 0RF Rx Instructions: do not exceed 3 doses per 24 hrs No Action buprenorphine-naloxone 8-2 mg tablet, sublingual 1 tab sublingual DAILY amlodipine 10 mg tablet 10 mg PO DAILY esomeprazole magnesium 40 mg Capsule,Delayed Release(Dr/Ec) 40 mg PO DAILY aspirin 81 mg Tablet 81 mg PO DAILY PRN (Reason: Pain) lisinopril 40 mg Tablet 40 mg PO DAILY albuterol sulfate 2.5 mg /3 mL (0.083 %) solution for nebulization 2.5 mg inhalation Q6H ofloxacin 0.3 % drops 5 drp otic (ear) DAILY Discharge Orders: Discharge ED (Routine); Ordered 04/25/25 Ordered By: Klever Forman Referrals: VALENTINA HERNANDEZ MD [Primary Care Provider, Nurse Practitioner] Discharge Diet: Usual diet Discharge Activity: Resume usual activity Patient Instructions: Opioid Safety, Pain Management, Patient Portal & Armando Instructions Activity Restrictions/Additional Instructions: Thank you for choosing [facility] for your healthcare needs today. It is very important that you follow up as instructed or that you return to the Emergency Department should you have concerns or if your condition changes or worsens in any way. Emergency department visits are focused on emergent conditions, in some cases you may require further evaluation on an outpatient basis. You were seen in the emergency room with complaints of thoracic pain and side pain after reaching with your arm. Evaluation not show any specific injury suspect that this is a muscle pull. You can use the anti-inflammatories and muscle relaxers as needed. (Please note that included in your discharge packet is information concerning opioid safety and pain management. This information is given to all patients were discharged from the ER regardless of their discharge diagnosis or the medicines they usually take or are prescribed.) Print Language: Malagasy Coding Level of Care Code ED Subway Conductor for Tracy Peralta
[2025-04-24 23:47] VITALS: BP 189/103; PULSE 79; O2SAT 100
--- NOTE | 2025-04-24 23:53 | XRR_ITS ---
PROCEDURE INFORMATION: Exam: XR Chest Exam date and time: 04/24/2025 11:58 PM Age: 49 years old Clinical indication: Cough and dyspnea; Additional info: Dyspnea/cough TECHNIQUE: Imaging protocol: Radiologic exam of the chest. Views: 1 view. COMPARISON: No relevant prior studies available. FINDINGS: Lungs: No confluent consolidation. Pleural spaces: No pleural effusion. No pneumothorax is seen. Heart/Mediastinum: Mediastinal contours are within normal limits. The heart is normal in size. Bones/joints: No lytic or blastic lesions. No acute osseous abnormality. Soft tissues: Soft tissue attenuation from overlying breast partially obscures evaluation of the lung bases. Intraperitoneal space: No free air is seen under the diaphragm. XR/XR chest 1V portable [id number] IMPRESSION: No acute cardiopulmonary process.
[2025-04-25 01:05] VITALS: RESP 18
[2025-04-25] MEDS: morphine 4 mg/mL SDV 1 mL IVP (01:05)
[2025-04-25 01:09] VITALS: BP 198/114; PULSE 76; O2SAT 96
[2025-04-25 01:17] LABS: Glucose Urine UA Negative (Normal); Nitrate Urine Negative (Negative); Specific Gravity, Urine 1.017 (1.005-1.030)
[2025-04-25 01:22] LABS: Add Urine Microscopic? YES
== END 2025-04-25 02:06 | disposition home or self-care (01) ==
PROVIDERS: Emergency Provider Family Medicine; PCP Nurse Practitioner Family
DX: M54.6 Pain in thoracic spine (principal); Z79.82 Long term (current) use of aspirin; Z72.0 Tobacco use; J44.9 Chronic obstructive pulmonary disease, unspecified
CPT/HCPCS: 71045; 81001; 96374; 96375; 99284; J1885; J2270

== ENCOUNTER 2025-07-08 19:19 | Emergency (ER) | payer MEDICAID, SELFPAY ==
[2025-07-08 19:20] VITALS: BP 175/98; PULSE 94; RESP 22; TEMP 36.6; O2SAT 96; BMI 47.0
--- NOTE | 2025-07-08 19:39 | CTR_ITS ---
PROCEDURE INFORMATION: Exam: CT Abdomen And Pelvis With Contrast Exam date and time: 07/08/2025 8:53 PM Age: 49 years old Clinical indication: Abdominal pain; Additional info: Rlq abdominal pain TECHNIQUE: Imaging protocol: Computed tomography of the abdomen and pelvis with contrast. Radiation optimization: All CT scans at this facility use at least one of these dose optimization techniques: automated exposure control; mA and/or kV adjustment per patient size (includes targeted exams where dose is matched to clinical indication); or iterative reconstruction. Contrast material: [id number]; Contrast volume: 100 ml; Contrast route: INTRAVENOUS (IV); COMPARISON: CR XR chest 1V portable [id number] 04/24/2025 11:58 PM RADIATION DOSE METRICS: Total DLP (mGy-cm): 1425.03 FINDINGS: Liver: Normal. No mass. Gallbladder and biliary ducts: Normal. No calcified stones. No ductal dilation. Pancreas: Normal. No ductal dilation. Spleen: Normal. No splenomegaly. Adrenal glands: Normal. No mass. Kidneys and ureters: Normal. No hydronephrosis. Stomach and bowel: Unremarkable. No obstruction. No mucosal thickening. Appendix: No evidence of appendicitis. Intraperitoneal space: Unremarkable. No free air. No significant fluid collection. Vasculature: Aortic atherosclerosis. Lymph nodes: Unremarkable. No enlarged lymph nodes. Urinary bladder: Unremarkable as visualized. Reproductive: Unremarkable as visualized. Bones/joints: Dependent mild anasarca in the lower lumbar region, questionable clinical significance. Moderate degenerative changes of lumbar vertebral bodies. Probable acute or subacute fracture of lateral aspect of right rib 9, nonsegmental; similar appearance of lateral aspect of rib 6, nonsegmental. Soft tissues: Fat containing umbilical hernia. CT/CT abdomen pelvis w con* [id number] IMPRESSION: Probable acute or subacute fracture of lateral aspect of right rib 9, nonsegmental; similar appearance of lateral aspect of rib 6, nonsegmental. No definite intraperitoneal acute findings.
--- NOTE | 2025-07-08 19:46 | ED_ITS ---
HPI - Abdominal Pain 2 General: Chief Complaint: Abdominal Pain Stated Complaint: abd pain Time Seen by Provider: 07/08/25 19:27 History of Present Illness: Patient is a 49-year-old female, presents to the emergency room due to right upper and lower quadrant abdominal pain. This been waxing and waning symptoms for the last 2 weeks. This is much worse, with patient guarding to her right side of her abdomen. She is passing gas. No abdominal surgeries. Nausea is present without emesis. She is complaining of severe pain. She does not have any flank pain. No dysuria. No fevers. Patient states my gallbladder is messed up. Patient states symptoms are worse than previous. Associated Symptoms: Reports nausea; Denies change in bowel habits, chills, dysuria, fever(s) and vomiting Related Data Home Medications ?Medication ?Instructions ?Recorded ?Confirmed buprenorphine 8 mg-naloxone 2 mg 1 tab sublingual CASS Y 01/30/23 04/06/25 sublingual tablet aspirin 81 mg tablet 81 mg PO DAILY PRN Pain 03/2204/06/25 esomeprazole magnesium 40 mg 40 mg PO DAILY 04/01/25 0 04/06/25 capsule,delayed release lisinopril 40 mg tablet 40 mg PO DAILY 04/01/2503/22 albuterol sulfate 2.5 mg/3 mL 2.5 mg inhalation Q6H 04/06/25 (0.083 %) solution for nebulization ofloxacin 0.3 % ear drops 5 drp otic (ear) DAILY 04/0204/06/25 amlodipine 10 mg tablet 10 mg PO DAILY 04/06/2503/22 Previous Rx's ?Medication ?Instructions ?Recorded diclofenac sodium 75 mg 75 mg PO Q12H PRN pain #20 t abs 04/25/25 tablet,delayed release tizanidine 4 mg tablet 4 mg PO Q6H PRN muscle spast icity 04/25/25 #20 tabs lactulose 10 gram/15 mL oral 30 g (45 mL) PO Q2H 48 ho urs 07/08/25 solution #1,080 mL Allergies Allergy/AdvReac Type Severity Reaction Status Date / Time penicillin G Allergy Intermediate ALGY-Hives Verified 04/24/25 22:09 tramadol Allergy Mild ALGY-Rash Verified 04/24/25 22:09 dexamethasone (From Maxitrol Allergy rash Verified 04/24/25 22:09 (neomycin sulf)) neomycin (From Maxitrol Allergy rash Verified 04/24/25 22:09 (neomycin sulf)) polymyxin B (From Maxitrol Allergy rash Verified 04/24/25 22:09 (neomycin sulf)) Review of Systems 2 Const: Denies: fever(s) or chills Card: Denies: chest pain or palpitations Resp: Denies: dyspnea GI: Reports: abdominal pain and nausea; Denies: vomiting, change in bowel habits or pain on defecation : Denies: dysuria, urinary frequency or urinary urgency Musc: Reports: back pain; Denies: neck pain Skin/Breast: Denies: rash Neuro: Denies: headache(s) or numbness in extremities PFSH ED 2 PFSH: Medical History (Updated 07/08/25 @ 21:28 by POLO Carpenter) Smokers' cough Smoker COPD (chronic obstructive pulmonary disease) Family History Father Diabetes Hypertension Sister Diabetes Hypertension Mother Hypertension Denies family history of Colon cancer Ovarian cancer Heart disease Breast cancer Uterine cancer Thyroid disease Stroke Social History Smoking and tobacco/nicotine status: current every day tobacco/nicotine user Physical Exam 2 Const: COMMON NORMALS: average body habitus and patient oriented x3 GENERAL APPEARANCE: cooperative and anxious; not in distress, not combative and not ill appearing HENMT: COMMON NORMALS: normocephalic and atraumatic HEAD & SCALP: n ormocephalic and atraumatic Eye: COMMON NORMALS: Equal, round and reactive pupils present and EOMs intact bilaterally PUPIL: Yes Equal, round and reactive pupils present Lymph: LYMPHATIC: no lymphadenopathy noted Chest: COMMONS NORMALS: normal inspection of the chest and normal palpation of entire chest wall Resp: COMMON NORMALS: normal respiratory effort, No retractions and No use of accessory muscles Cardio: COMMON NORMALS: regular rate and regular rhythm RATE: regular rate RHYTHM: regular rhythm GI: COMMON NORMALS: Soft to palpation and No hepatosplenomegaly present P ALPATION: Yes Soft to palpation, Yes Tenderness to palpation present (GI) Details: RLQ and RUQ, Yes Guarding due to palpation present (GI) in the RUQ, No Rigid due to palpation and Yes No hepatosplenomegaly present : COMMON NORMALS: Yes no CVA tenderness BLADDER/KIDNEY EXAM: Yes no CVA tenderness Back/Pelvis: COMMON NORMALS: no CVA tenderness Neuro: COMMON NORMALS: patient oriented x3 Course 2 Reevaluation(s): Reevaluation #1: Patient anxious. Placed pulse ox back on her, reassured her, and ordered Ativan. Vital Signs: Vital signs: Vital Signs Temperature 97.9 F 07/08/25 19:20 Pulse Rate 94 07/08/25 19:20 Respiratory Rate 22 H 07/08/25 19:20 Blood Pressure 175/98 07/08/25 19:20 Pulse Oximetry 97 07/08/25 20:12 Oxygen Delivery Me thod Room Air 07/08/25 20:12 MDM - Abdominal Pain Medical Decision Making Patient is difficult to assess due to her anxiety. On CT of the abdomen and pelvis, she was found to have a right rib fracture, that was acute or subacute. Patient thinks she might of bumped it, however is not definite on this. In any event, there is no additional abdominal pathology. On my view, she does appear to have increased fecal material. Lactulose was given. Lactulose will be sent to the pharmacy. Patient was advised clear liquid diet until symptoms resolved. Medical Records I reviewed the patient's medical records. Lab Data I reviewed the patient's lab results. 07/08/25 20:12 07/08/25 20:12 Labs/Radiology: Radiology Impressions Abdomen/Pelvis CT 07/08/25 19:39 IMPRESSION: Probable acute or subacute fracture of lateral aspect of right rib 9, nonsegmental; similar appearance of lateral aspect of rib 6, nonsegmental. No definite intraperitoneal acute findings. Laboratory Results WBC 7.49 10^3/uL (3.29-11.43) 07/08/25 20:12 RBC 4.37 10^6/uL (3.85-5.65) 07/08/25 20:12 Hgb 12.60 g/dL (11.27-16.99) 07/08/25 20:12 Hct 40.3 % (36-47) 07/08/25 20:12 MCV 92.2 fl (85-98) 07/08/25 20:12 MCH 28.8 pg (27-33) 07/08/25 20:12 MCHC 31.3 g/dL (30-55) 07/08/25 20:12 RDW 13.9 % (12.1-15.1) 07/08/25 20:12 Plt Count 172 10^3/cmm (157-399) 07/08/25 20:12 MPV 11.3 fL (7.4-10.4) H 07/08/25 20:12 Neut % (Auto) 63.8 % 07/08/25 20:12 Lymph % (Auto) 25.1 % 07/08/25 20:12 Cowley % (Auto) 8.4 % 07/08/25 20:12 Eos % (Auto) 1.7 % 07/08/25 20:12 Baso % (Auto) 0.7 % 07/08/25 20:12 Neut # (Auto) 4.78 10^3/uL (1.8-7.7) 07/08/25 20:12 Lymph # (Auto) 1.9 10^3/uL (0.8-4.8) 07/08/25 20:12 Cowley # (Auto) 0.6 10^3/uL (0.2-0.9) 07/08/25 20:12 Eos # (Auto) 0.1 10^3/uL (0.0-0.8) 07/08/25 20:12 Baso # (Auto) 0.1 10^3/uL (0.0-0.1) 07/08/25 20:12 Nucleated RBC % (auto) 0 % 07/08/25 20:12 Nucleated RBCs # 0.0 /100WBC 07/08/25 20:12 Sodium 140 mmol/L (136-145) 07/08/25 20:12 Potassium 4.3 mmol/L (3.5-5.1) 07/08/25 20:12 Chloride 104 mmol/L (98-107) 07/08/25 20:12 Carbon Dioxide 29 mmol/L (22-29) 07/08/25 20:12 Anion Gap 11.3 (5-19) 07/08/25 20:12 BUN 11 mg/dL (6-20) 07/08/25 20:12 Creatinine 0.5 mg/dL (0.5-0.9) 07/08/25 20:12 GFR Calculation 132.2 mL/min (90-130) H 07/08/25 20:12 Glucose 124 mg/dL (65-115) H 07/08/25 20:12 Calculated Osmolality 291 mOsm/kg (285-295) 07/08/25 20:12 Lactic Acid 1.2 mmol/L (0.5-2.2) 07/08/25 20:12 Calcium 8.7 mg/dL (8.5-10.5) 07/08/25 20:12 Total Bilirubin 0.2 mg/dL (0.15-1.2) 07/08/25 20:12 AST 28 U/L (0-32) 07/08/25 20:12 ALT 34 U/L (0-33) H 07/08/25 20:12 Alkaline Phosphatase 128 U/L (35-105) H 07/08/25 20:12 C-Reactive Protein 3.0 mg/L (0.0-4.9) 07/08/25 20:12 Total Protein 7.4 g/dL (6.6-8.7) 07/08/25 20:12 Albumin 3.8 g/dL (3.5-5.2) 07/08/25 20: Globulin 3.6 g/dL (1.3-4.6) 07/08/25 20:12 Lipase 11 U/L (13-60) L 07/08/25 20:12 HCG, Qual Negative (Negative) 07/08/25: Urine Color Dark yellow (Yellow) A 07/08/25 20: Urine Appearance Clear (CLEAR) 07/08/25 20: Urine pH 7.5 (5-7) 07/08/25 20: Ur Specific Jordan 1.029 (1.005-1.030) 07/08/25 20: Urine Protein 1+ (Negative) A 07/08/25 20: Urine Glucose (UA) Negative (Normal) 07/08/25 20: Urine Ketones Trace (Negative) 07/08/25 20: Urine Blood Negative (Negative) 07/08/25 20: Urine Nitrate Negative (Negative) 07/08/25 20:07 Urine Bilirubin Negative (Negative) 07/08/25 20:07 Urine Urobilinogen 1.0 mg/dL (Negative) 07/08/25 20:07 Ur Leukocyte Esterase Negative (Negative) 07/08/25 20:07 Urine RBC 0-2 /hpf (0-2) 07/08/25 20:07 Urine WBC 0-5 /hpf (0-5) 07/08/25 20:07 Ur Squamous Epith Cells 0-5 /hpf (0-5) 07/08/25 20:07 Amorphous Sediment Not Reportable 07/08/25 20:07 Urine Bacteria None seen /hpf (NONE) 07/08/25 20:07 Hyaline Casts 0-4 /lpf H 07/08/25 20:07 All radiology interpretation(s) finalized by discharge ED provider radiology interpretation(s): Increased amount of fecal material Discharge Plan Discharge Patient Disposition: Home Clinical Impression: Constipation due to slow transit Closed rib fracture Qualifiers: Encounter type: initial encounter Rib fracture type: single rib Laterality: r ight Qualified Code(s): S22.31XA - Fracture of one rib, right side, initial encounter for closed fracture Condition: Stable Prescriptions: New lactulose 10 gram/15 mL solution 30 g PO Q2H 2 Days Qty: 1080 0RF Rx Instructions: until desired laxative effect No Action buprenorphine-naloxone 8-2 mg tablet, sublingual 1 tab sublingual DAILY amlodipine 10 mg tablet 10 mg PO DAILY esomeprazole magnesium 40 mg Capsule,Delayed Release(Dr/Ec) 40 mg PO DAILY aspirin 81 mg Tablet 81 mg PO DAILY PRN (Reason: Pain) lisinopril 40 mg Tablet 40 mg PO DAILY albuterol sulfate 2.5 mg /3 mL (0.083 %) solution for nebulization 2.5 mg inhalation Q6H ofloxacin 0.3 % drops 5 drp otic (ear) DAILY diclofenac sodium 75 mg tablet,delayed release (DR/EC) 75 mg PO Q12H PRN (Reason: pain) Qty: 20 0RF tizanidine 4 mg tablet 4 mg PO Q6H PRN (Reason: muscle spasticity) Qty: 20 0RF Rx Instructions: do not exceed 3 doses per 24 hrs Discharge Orders: Discharge ED (Routine); Ordered 07/08/25 Ordered By: Oksana Flynn Referrals: VALENTINA HERNANDEZ MD [Primary Care Provider, Nurse Practitioner] Discharge Diet: Clear Liquid and Full LIquid Discharge Activity: Resume usual activity Patient Instructions: Abdominal Pain (ED), Opioid Safety, Pain Management, Patient Portal & Armando Instructions, Fractures - Rib Activity Restrictions/Additional Instructions: - Ibuprofen and Tylenol for pain - Obtain Lidoderm patches [id number], and placed on affected rib - Make sure you do your deep breathing exercises - Clear and full liquid diet only until your pain resolves -Stool softener, probiotic is the best way to help with your constipation, as well as increasing fluid intake. - There was no issues found with your gallbladder, your white blood cells, your chemistry, or your urine other than dehydration and constipation. - Increase your fluid intake, do not intake any food until this resolves. - Return to ED with worsening symptoms, fever greater than 100.4 ?F Thank you for choosing [facility] for your healthcare needs today. You have been screened and evaluated and felt safe for discharge. Health conditions do change or evolve sometimes and as such it is important that you follow up with your Primary Doctor to be re checked, 3-5 days is a general good time frame for follow up. You are always welcome to return to the ED for re assessment if your symptoms are worsening or you have new concerns Print Language: [place] Coding Level of Care Code ED Insurance Adjuster for Tracy Peralta
[2025-07-08 20:12] VITALS: O2SAT 97
[2025-07-08 20:22] LABS: Glucose Urine UA Negative (Normal); Nitrate Urine Negative (Negative); Specific Gravity, Urine 1.029 (1.005-1.030)
[2025-07-08 20:39] LABS: HCG, Serum Qual Negative (Negative)
[2025-07-08 20:42] LABS: Alanine Aminotransferase 34 U/L (0-33); Albumin Level 3.8 g/dL (3.5-5.2); Alkaline Phosphatase 128 U/L (35-105); Anion Gap 11.3 (5-19); Aspartate Amino Transferase 28 U/L (0-32); Blood Urea Nitrogen 11 mg/dL (6-20); Calcium 8.7 mg/dL (8.5-10.5); Carbon Dioxide 29 mmol/L (22-29); Chloride 104 mmol/L (98-107); Globulin 3.6 g/dL (1.3-4.6); Glucose 124 mg/dL (65-115); Lipase 11 U/L (13-60); Osmolality Calculated 291 mOsm/kg (285-295); Potassium 4.3 mmol/L (3.5-5.1); Sodium 140 mmol/L (136-145); Total Protein 7.4 g/dL (6.6-8.7)
[2025-07-08 20:43] LABS: Lactic Sepsis W/Reflex 1.2 mmol/L (0.5-2.2)
[2025-07-08] MEDS: LORazepam 2 mg/mL INJ 1 mL 1 MG IVP (20:43)
[2025-07-08 20:51] LABS: Hematocrit 40.3 % (36-47); Hemoglobin 12.60 g/dL (11.27-16.99); Mean Corpuscular HGB Conc 31.3 g/dL (30-55); Mean Corpuscular Hemoglobin 28.8 pg (27-33); Mean Corpuscular Volume 92.2 fl (85-98); Nucleated Red Blood Cells % 0 %; Platelet Count 172 10^3/cmm (157-399); Red Blood Count 4.37 10^6/uL (3.85-5.65); White Blood Count 7.49 10^3/uL (3.29-11.43)
[2025-07-08] MEDS: iohexol 350 mg/mL 500 mL Btl (per mL) IV (21:08)
[2025-07-08] MEDS: lactulose oral liq 20 gm/30 mL UDC 30 GM PO (21:34)
== END 2025-07-08 21:40 | disposition home or self-care (01) ==
PROVIDERS: Emergency Medicine; Emergency Provider Physician Assistant; PCP Nurse Practitioner Family
DX: K59.01 Slow transit constipation (principal); S22.31XA Fracture of one rib, right side, initial encounter for closed fracture; Z79.82 Long term (current) use of aspirin; Z72.0 Tobacco use; J44.9 Chronic obstructive pulmonary disease, unspecified; X58.XXXA Exposure to other specified factors, initial encounter
CPT/HCPCS: 36415; 74177; 80053; 81001; 83605; 83690; 84703; 85025; 86140; 87040; 96374; 99285; J2060; J2270; J7120; J9999